=== PATIENT | male | born 1995 | race Caucasian/White ===

== ENCOUNTER 2018-12-19 05:11 | Emergency (ER) | payer BC ==
[2018-12-19] MEDS ORDERED: Amoxicillin/Potassium Clav 875 MG TAB ONE (05:33)
== END 2018-12-19 05:40 | disposition home or self-care (01) ==
LOC: BURERS 05:11
DX: S40.021A Contusion of right upper arm, initial encounter (principal); Y04.1XXA Assault by human bite, initial encounter
CPT/HCPCS: 99283